=== PATIENT | male | born 1985 ===

== ENCOUNTER 2017-10-04 18:00 | Emergency (ER) | payer OTHER ==
[2017-10-04 18:09] VITALS: BP 132/84; PULSE 72; RESP 16; TEMP 98.8; O2SAT 100
[2017-10-04] MEDS ORDERED: Tdap Vaccine 0.5 ml Vial (10-64 yrs) IM ONE ×2 (18:17→18:31)
[2017-10-04] MEDS ORDERED: Absorbable Gelatin Sponge Size 12-7 TP STA (18:18)
[2017-10-04] MEDS ORDERED: Absorbable Gelatin Sponge Size 12-7 ONE (18:31)
--- NOTE | 2017-10-04 19:06 | ED PDOC ---
HPI: General Adult Time Seen by Provider: 10/04/17 18:13 Chief Complaint (Nursing): Abnormal Skin Integrity Chief Complaint (Provider): Abnormal Skin Integrity History Per: Patient History/Exam Limitations: no limitations Additional Complaint(s): Zeyad Metzger is a 32 year old male with no past medical history who is presenting to the ER for evaluation of right index finger injury, onset prior to arrival. Patient states that earlier today at work, he cut his right index finger with a mandolin. Patient is unsure of last tetanus shot. He denies any numbness, tingling, or foreign body sensation. PMD: none provided Past Medical History Reviewed: Historical Data, Nursing Documentation, Vital Signs Vital Signs: Last Vital Signs Temp 98.8 F 10/04/17 18:07 Pulse 72 10/04/17 18:07 Resp 16 10/04/17 18:07 BP 132/84 10/04/17 18:07 Pulse Ox 100 10/04/17 19:09 - Medical History PMH: No Chronic Diseases - Family History Family History: States: Unknown Family Hx - Allergies Allergies/Adverse Reactions: Allergies Allergy/AdvReac Type Severity Reaction Status Date / Time No Known Allergies Allergy Verified 10/04/17 18:07 Review of Systems ROS Statement: Except As Marked, All Systems Reviewed And Found Negative Constitutional: Negative for: Other (foreign body sensation ) Musculoskeletal: Positive for: Hand Pain (finger laceration) Neurological: Negative for: Numbness, Other (tingling) Physical Exam - Reviewed Nursing Documentation Reviewed: Yes Vital Signs Reviewed: Yes - Physical Exam Appears: Positive for: Non-toxic, No Acute Distress Head Exam: Positive for: ATRAUMATIC, NORMAL INSPECTION, NORMOCEPHALIC Skin: Positive for: Normal Color, Warm, DRY Extremity: Positive for: Normal ROM, Other (small superficial avulsion to right second digit, nail intact) Neurologic/Psych: Positive for: Alert, Oriented. Negative for: Motor/Sensory Deficits - ECG O2 Sat by Pulse Oximetry: 100 (RA) Pulse Ox Interpretation: Normal Medical Decision Making Medical Decision Making: Time: 18:17 Plan: --Adacel 0.5 ml IM --Wound irrigated heavily with NS --Gelfoam dressing applied by RN. Scribe Attestation: Documented by Maira Aguilar, acting as a scribe for Jaren Crocker PA-C. Provider Scribe Attestation: All medical record entries made by the Scribe were at my direction and personally dictated by me. I have reviewed the chart and agree that the record accurately reflects my personal performance of the history, physical exam, medical decision making, and the department course for this patient. I have also personally directed, reviewed, and agree with the discharge instructions and disposition. Disposition - Clinical Impression Clinical Impression: Finger avulsion - Patient ED Disposition Is Patient to be Admitted: No - Disposition Referrals: [email or web address] [place] [Outside] [facility] [Outside] Disposition: Routine/Home Disposition Time: 19:06 Condition: STABLE Instructions: Wound Care (DC) Forms: [employer] (Irish)
== END 2017-10-04 19:06 | disposition home or self-care (01) ==
LOC: H.ER 18:00
DX: S61.210A Laceration without foreign body of right index finger without damage to nail, initial encounter (principal); W26.8XXA Contact with other sharp object(s), not elsewhere classified, initial encounter; Y99.0 Civilian activity done for income or pay